=== PATIENT | male | born 1965 | race Caucasian/White ===

== ENCOUNTER 2023-10-12 07:51 | Emergency (ER) | payer OTHER, SELFPAY ==
[2023-10-12 07:56] VITALS: BP 159/122
--- NOTE | 2023-10-12 08:25 | ED.GENMED ---
History of Present Illness
General
Chief Complaint: Back Pain
Source: patient
Exam Limitations: none
Time Seen by Provider: 10/12/23 08:15
Travel History
Have you had any contact with someone who has COVID-19?: No
Do you have any symptoms of coronavirus? Fever > 100 degrees, chills, cough, shortness of breath, sore throat, loss of taste or smell, muscle aches, or headache?: No
History of Present Illness
History of Present Illness:
58-year-old male presents with sudden onset lower back pain that radiates now down both legs. He states his left foot is numb. He notes pain along the anterior right thigh and pain down the posterior lateral aspect of the left leg with severe
pressure in the lower back. He denies any bowel or bladder dysfunction. No saddle anesthesia. He is unable to walk secondary to this discomfort. He has a history of radiculopathy in the past. He tried baclofen and meloxicam yesterday with
minimal relief.
Phy Exam
Physical Exam
Physical Exam:
General: Uncomfortable appearing male no acute respiratory distress
HEENT: Normocephalic atraumatic
Musculoskeletal exam: Patient maintains range of motion of the lower extremities.
Neurologic exam: Bilateral patellar reflexes 2+. Good sensation to lower extremities. Patient barely able to ambulate but ambulates hunched over in a slow shuffling gait
Extremities: No cyanosis
Course
Orders/Labs/Results
Orders:
Orders
10/12/23 08:21
Dexamethasone Sod Phosphate [Decadron] 10 mg IV NOW STA
Ketorolac [Toradol] 15 mg IV NOW STA
diazePAM [Valium Injection] 5 mg IV NOW STA
10/12/23 08:27
MR Lumbar Without Contrast Urgent
Comment:
Reason For Exam: severe back pain with radiculopathy
OK for patient to be off Cardiac Monitoring for MRI: Yes
Recent pill cam endoscopy?: No
Vital Signs
Initial and Last Documented VS:
Initial Vital Signs
Temp Pulse Resp BP Pulse Ox
97.9 F 71 18 159/122 100
10/12/23 07:56 10/12/23 07:56 10/12/23 07:56 10/12/23 07:56 10/12/23 07:56
Last Documented Vital Signs
Temp Pulse Resp BP Pulse Ox
97.9 F 71 18 159/122 96
10/12/23 07:56 10/12/23 07:56 10/12/23 07:56 10/12/23 07:56 10/12/23 09:30
MDM/Problems Addressed
Differential Diagnosis Includes:
Low back pain with bilateral lower extremity pain. Question radiculopathy. No signs concerning for cauda equina. Will obtain postvoid residual. Valium Decadron Toradol ordered. Secondary to severe debilitating pain requested MRI of lumbar spine
to be done emergently.
*Critical Care Note
Total Time (30-74mins, 75-104mins- exclusive of procedures): Not Applicable
Update Note
Update Note:
Patient reexamined and is now ambulatory after medicine. MRI of the back ordered secondary to severe pain pressure in the back and ambulatory dysfunction. This showed mild changes but no significant central canal stenosis or foraminal stenosis.
Patient has Decadron and baclofen he will continue at home. Stable for discharge at this time. No red flags concerning for cauda equina. No indication for urgent surgical intervention.
ED Attending Note
-
Portions of this chart may have been created with voice recognition software.� Occasional wrong word or��sound alike� substitutions may have occurred due to the inherent limitations of voice recognition software.
Discharge Plan
Departure
Patient Disposition: Home (Routine Discharge)
Date of Disposition: 10/12/23
Time of Disposition: 11:50
Patient with high blood pressure during this ER visit?: No
Discharge Problem:
Back pain
Instructions: Radiculopathy (DC)
Referrals:
[facility], [facility] [Family Provider] -
Activity Restrictions/Additional Instructions:
Continue with anti-inflammatories and muscle relaxers. Return here if needed otherwise follow-up with your doctor
Interventions
Interventions:
*Risk Screen - Suicide Last Done: 10/12/23 08:19
*General Assessment Last Done: 10/12/23 08:19
*Neglect/Abuse Screening Last Done: 10/12/23 08:19
ED- Fall Risk Assessment Last Done: 10/12/23 08:19
*ED COVID-19 Vaccine History Last Done: 10/12/23 07:56
ED-Musculoskeletal Assessment Last Done: 10/12/23 08:19
Discharge Date and Time
Print Language: BANGLADESHI
[2023-10-12] MEDS: TORADOL 15 MG IV (08:32)
[2023-10-12] MEDS: DECADRON 10 MG IV (08:32)
[2023-10-12] MEDS: VALIUM INJECTION 5 MG IV (08:32)
[2023-10-12 11:56] VITALS: BP 150/85
== END 2023-10-12 11:57 | disposition home or self-care (01) ==
LOC: EMR 07:51
PROVIDERS: EMERGENCY PHYSICIAN Emergency Medicine; FAMILY PHYSICIAN Registered Nurse
DX: M54.9 Dorsalgia, unspecified (principal)
CPT/HCPCS: 99284; 96374; 96375 ×2; 72148

== ENCOUNTER 2024-06-06 18:05 | Emergency (ER) | payer OTHER, SELFPAY ==
[2024-06-06 18:08] VITALS: BP 134/91
[2024-06-06 18:29] LABS: % Basophils 0.4 % (0-2); % Eosinophils 1.1 % (0-6); % Immature Granulocytes 0.2 % (0-0.5); % Monocytes 8.1 % (1.7-9.3); % Neutrophils 57.2 % (42.2-75.2); Absolute Eosinophils 0.1 10^3/uL (0-0.7); Absolute Lymphocytes 1.5 10^3/uL (1.2-3.4); Absolute Monocytes 0.4 10^3/uL (0.1-0.6); Absolute Neutrophils 2.7 10^3/uL (1.4-6.5); Hematocrit 48.3 % (39.0-52.0); Hemoglobin 16.3 g/dL (13.0-18.0); Mean Corp Hgb Conc. 33.7 g/dL (33.0-37.0); Mean Corpuscular Hgb 28.5 pg (27.0-31.0); Mean Corpuscular Volume 84.4 fL (80.0-94.0); Mean Platelet Volume 9.5 fL (7.4-10.4); Nucleated Red Blood Cells % 0 % (-); Platelet Count 217 10^3/uL (130-400); Red Blood Cell Count 5.72 10^6/uL (4.70-6.10); Red Cell Dist. Width 12.3 % (11.5-14.5); White Blood Cell Count 4.7 10^3/uL (4.8-10.8)
[2024-06-06 18:46] LABS: ALT (SGPT) 37 U/L (0-50); AST (SGOT) 32 U/L (17-59); Alkaline Phosphatase 80 U/L (38-126); Blood Urea Nitrogen 15 mg/dl (9-20); Calcium 9.9 mg/dl (8.4-10.2); Carbon Dioxide 30 mmol/L (22-30); Chloride 100 mmol/L (98-107); Glucose 89 mg/dl (70-99); Lipase 79 U/L (23-300); Potassium 4.4 mmol/L (3.5-5.1); Sodium 138 mmol/L (135-145); Total Bilirubin 0.8 mg/dl (0.2-1.3); Total Protein 8.1 g/dl (6.3-8.2); eGFR > 60.00
--- NOTE | 2024-06-06 20:30 | ED.GENMED ---
History of Present Illness
General
Chief Complaint: Abdominal Pain
Source: patient
Exam Limitations: none
Time Seen by Provider: 06/06/24 20:24
Nursing documentation reviewed up to this point in time: agreed with
History of Present Illness
History of Present Illness:
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
abdominal surgeries,
Past History
Past History
ED Past Medical History: Other (Diverticulosis)
ED Past Surgical History: None
Social History
Tobacco: Non-smoker
Alcohol: None
Drug: None
Personal:
Living: with family
Employment: Employed
Review of Systems
Review of Systems
All Other Systems: Not applicable
Constitutional: Reports fatigue; Denies fever
EENT: Reports no symptoms
Respiratory: Reports no symptoms
ABD/GI: Reports abdominal pain, nausea and anorexia
Musculoskeletal: Reports no symptoms
Skin: Reports no symptoms
Phy Exam
Physical Exam
Physical Exam:
Physical Exam
General: no apparent distress, not acutely ill
Neck: No jaundice
Heart: s1/s2 regular rate and rhythm, no murmur. equal radial pulses.
Lungs: no acute respiratory distress. clear bilaterally
Abdomen: Tender in the left lower abdomen without guarding or rebound no appreciable hernia no right lower abdominal tender
Neuro: alert and oriented. no focal neurological deficits
Skin: no rash
Psychiatric: well kept. interactive and cooperative
Extremities: no edema. no calf tenderness. negative homans. good distal pulses
Course
Orders/Labs/Results
Orders:
Orders
06/06/24 18:22
Complete Blood Count/With Diff Urgent
Comprehensive Metabolic Panel Urgent
Lipase Urgent
06/06/24 19:08
CT Abd/pelvis W Iv Cont Urgent
Comment:
Reason For Exam: llq pain
06/06/24 20:29
0.9% Sodium Chloride 1000 ml [Nss] 1,000 ml IV BOLUS
Acetaminophen [Tylenol] 1,000 mg PO NOW STA
06/06/24 22:06
Urinalysis Reflex To Culture Urgent
Date Specimen was Collected: 06/06/24
Time Specimen was Collected: 22:13
06/06/24 22:09
Ketorolac [Toradol] 30 mg IV NOW STA
Abnormal Lab Results
06/06/24
18:22
WBC 4.7 L 10^3/uL
(4.8-10.8)
06/06/24 18:22
06/06/24 18:22
Vital Signs
Initial and Last Documented VS:
Initial Vital Signs
Temp Pulse Resp BP Pulse Ox
97.6 F 82 20 134/91 99
06/06/24 18:08 06/06/24 18:08 06/06/24 18:08 06/06/24 18:08 06/06/24 18:08
Last Documented Vital Signs
Temp Pulse Resp BP Pulse Ox
97.6 F 82 20 131/77 96
06/06/24 18:08 06/06/24 18:08 06/06/24 18:08 06/06/24 22:00 06/06/24 22:00
MDM/Problems Addressed
Differential Diagnosis Includes:
Diverticulitis urinary tract pathology colitis
MDM/Problems Addressed:
Abdominal pain
Chronic conditions affecting care:
Diverticula
Acute Exacerbation and/or Progression of Chronic Illness:
Diverticular
*Radiology
Radiology exam reviewed: radiology read reviewed
*Pulse Oximetry
Patient hypoxic: no
*Critical Care Note
Total Time (30-74mins, 75-104mins- exclusive of procedures): Not Applicable
Update Note
Update Note:
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
consideration for continuing his antibiotics versus stopping will have him continue it as he does have diverticulosis and is symptomatic
ED Attending Note
-
Portions of this chart may have been created with voice recognition software.� Occasional wrong word or��sound alike� substitutions may have occurred due to the inherent limitations of voice recognition software.
Discharge Plan
Departure
Patient Disposition: Home (Routine Discharge)
Date of Disposition: 06/06/24
Time of Disposition: 22:27
Patient with high blood pressure during this ER visit?: No
Condition: Good
Covid-19: Not Applicable
Discharge Problem:
Abdominal pain in male
Instructions: Abdominal Pain
Prescriptions:
New
ibuprofen 600 mg tablet
600 mg PO Q6H PRN (Reason: pain) Qty: 20 0RF
Referrals:
[facility] Rucker CRNP [Family Provider] -
Interventions
Interventions:
*Risk Screen - Suicide Last Done: 06/06/24 18:08
*General Assessment Last Done: 06/06/24 18:08
*Neglect/Abuse Screening Last Done: 06/06/24 18:08
ED- Fall Risk Assessment Last Done: 06/06/24 20:42
*ED COVID-19 Vaccine History Last Done: 06/06/24 20:42
JK-Edsbry-Xiopebhmyb Assessment Last Done: 06/06/24 20:42
Discharge Date and Time
Print Language: TURKMEN
[2024-06-06 20:42] VITALS: BMI 27.3
[2024-06-06] MEDS: TYLENOL 1000 MG PO (20:46)
[2024-06-06] MEDS: NSS 1000 IV (20:46)
[2024-06-06 21:00] VITALS: BP 138/79
[2024-06-06 22:00] VITALS: BP 131/77
[2024-06-06] MEDS: TORADOL 30 MG IV (22:14)
[2024-06-06 22:34] LABS: Urine Albumin Trace (Neg - Trace); Urine Bilirubin Negative (Negative); Urine Character Clear (Clear); Urine Color Yellow; Urine Glucose Negative (Negative); Urine Ketone 2+ (Negative); Urine Leukocyte Negative (Negative); Urine Nitrite Negative (Negative); Urine Occult Blood Negative (Negative); Urine Urobilinogen Negative (Neg - 1+)
== END 2024-06-06 23:18 | disposition home or self-care (01) ==
LOC: EMR 18:05
PROVIDERS: Emergency Medicine; EMERGENCY PHYSICIAN Emergency Medicine; FAMILY PHYSICIAN Registered Nurse
DX: R10.9 Unspecified abdominal pain (principal)
CPT/HCPCS: 99284; 96374; 74177; 80053; 81003; 83690; 85025; Q9967

== ENCOUNTER → 2024-12-09 09:39 | Outpatient (REF) | payer OTHER, SELFPAY | LOC: DHSLP 09:39 | PROVIDERS: ATTENDING PHYSICIAN Registered Nurse | DX: G47.30 Sleep apnea, unspecified (principal); R53.83 Other fatigue; R06.83 Snoring | CPT/HCPCS: 95806 ==